=== PATIENT | female | born 1990 | race Caucasian/White ===

== ENCOUNTER 2016-11-18 15:27 | Emergency (ER) | payer SELFPAY ==
[~2016-11-18] VITALS: Ht 157.5 cm; Wt 82.7 kg
[2016-11-18 15:36] VITALS: BP 137/85
[2016-11-18] MEDS ORDERED: DIPH,PERTUSS(ACELL),TET VAC/PF 0.5 ML IM-VACC ONE (16:00)
[2016-11-18] MEDS ORDERED: LIDOCAINE 1%, 20ML SQ ONE (16:00)
== END 2016-11-18 17:36 | disposition home or self-care (01) ==
LOC: ED 17:31
DX: S61.411A Laceration without foreign body of right hand, initial encounter (principal); W25.XXXA Contact with sharp glass, initial encounter; Y93.89 Activity, other specified; Y92.89 Other specified places as the place of occurrence of the external cause; Y99.8 Other external cause status
CPT/HCPCS: 13121; 90471; 90715

== ENCOUNTER 2016-11-28 19:02 | Emergency (ER) | payer SELFPAY ==
[~2016-11-28] VITALS: Ht 157.5 cm; Wt 83.2 kg
[2016-11-28 19:50] VITALS: BP 134/84
[2016-11-28] MEDS ORDERED: BACITRACIN ZINC OINT 500U/GM, 0.9 GM ONE (21:25)
== END 2016-11-28 21:45 | disposition home or self-care (01) ==
LOC: ED 21:39
DX: S61.011D Laceration without foreign body of right thumb without damage to nail, subsequent encounter (principal); Z48.02 Encounter for removal of sutures
CPT/HCPCS: 99282; 99283